=== PATIENT | male | born 1945 | race Caucasian/White ===

== ENCOUNTER 2017-02-15 12:25 | Inpatient (IN) | payer MEDICARE, OTHER ==
[2017-02-15] VITALS (7 sets, daily range): BP systolic 112–157; BP diastolic 48–80; PULSE 61–99; RESP 16–23; O2SAT 95–99
[~2017-02-15] VITALS: Ht 160 cm; Wt 67.7 kg
[2017-02-15 13:28] LABS: BASOPHILS % (AUTO) 0.1 % (0-3); EOSINOPHILS % (AUTO) 0.1 % (0-5); MONOCYTES % (AUTO) 7.1 % (4-12); Mean Corpuscular Hemoglobin 31.8 pg (27.0-35.0); Mean Corpuscular Volume 90.8 fL (81-100); NEUTROPHILS % (AUTO) 90.4 % (40-74); Platelet Count 112 bil/L (150-400)
--- NOTE | 2017-02-15 14:48 | ED.REPORT ---
HPI-URI / Cough / Cold Date of Service Feb 15, 2017 ED Provider: Judi Fu History of Present Illness: coughed up blood this morning. Dx with pneumonia today at the walk in clinic. sick for 3 days with lung thing. some coughing with a great deal of pain. primary care is in [facility] [place] [facility] DR. Wylie. plans to return in 2 weeks leaving on feb 26. wheel chair bound secondary to polio when he was a child Nursing Notes Stated Complaint: PNEUMONIA Chief Complaint: General Complaint Nursing Notes Reviewed: Yes Allergies: Coded Allergies: Sulfa (Sulfonamide Antibiotics) (Verified Allergy, Severe, THROAT SWELLING IN SUN, 02/15/17) hydrocodone (Verified Allergy, Intermediate, Rash, 02/15/17) Scheduled Budesonide/Formoterol 160-4.5 mcg Inh (Symbicort 160-4.5 mcg Inh) 120 Puff Inhaler 1 PUFF INHALATION BID Buspirone (Buspirone) 15 Mg Tablet 15 MG PO TID Carbidopa/Levodopa 25-250 mg (Carbidopa/Levodopa 25-250 mg) 1 Each Tablet 1 TABLET PO QID Ipratropium/Albuterol Sulfate (Iprat-Albut 0.5-3(2.5) mg/3 mL Inhalant Soln) 3 Ml Ampul.neb 3 ML IH Q6 Magnesium Hydroxide (Milk of Magnesia) 400 Mg/5 Ml Oral.susp 400 MG PO HS Meloxicam (Meloxicam) 15 Mg Tablet 15 MG PO DAILYWM Metoprolol Tartrate (Metoprolol Tartrate) 50 Mg Tablet 50 MG PO DAILY Omeprazole (Omeprazole) 20 Mg Capsule.dr 20 MG PO DAILY Solifenacin Succinate (Vesicare) 5 Mg Tablet 10 MG PO DAILY Tamsulosin (Flomax) 0.4 Mg Capsule 0.4 MG PO BID Scheduled PRN Albuterol Sulfate (Ventolin HFA Inhaler) 200 Puff/18 Gm Inhaler 2 PUFF INH Q4 PRN PRN For Wheezing Lorazepam (Lorazepam) 2 Mg Tablet 2 MG PO HS PRN PRN For Insomnia Oxycodone (Roxicodone) 5 Mg Tablet 10 MG PO QID PRN PRN For Pain General Time Seen by MD: 14:46 Chief Complaint Cough, productive... (Bloody) Hx Obtained From: Patient Past Medical History Past Medical History Hx of polio as a child, sciolosis 02/15/2017 Past Surgical History surgery for scoiliosis Smoking History Never Smoker Social History Alcohol Use: Denies alcohol use Drug Use: Denies drug use Other Social History: Occupation lives in [facility], visiting family locally 02/15/2017 Ambulatory Status Wheelchair Review of Systems Basic Review of Systems Cardiovascular: No chest pain, No dyspnea on exertion, No orthopnea, No parox noct dyspnea, No palpitations Hematologic: No bleeding, No bruising Endocrine: No cold intolerance, No heat intolerance, No weight gain, No weight loss Physical Exam Initial Vital Signs Vital Signs (First) Date Time Temp Pulse Resp B/P Pulse Ox O2 Delivery O2 Flow Rate FiO2 02/15/17 12:43 37.3 96 20 126/67 95 Room Air Initial VS: Reviewed, Vital signs normal Head / Eyes: Atraumatic, Normocephalic, PERRL Neck: Supple, Non-tender, Full range of motion Cardiovascular: Regular rate & rhythm, Heart sounds normal, Intact distal pulses Abdomen / GI: Soft, Non-tender, No guarding, No rebound, No distention Back: No CVA tenderness Lymphatic: No lymphadenopathy Extremities: Vascular intact, Neuro intact, No swelling, No tenderness Skin: Warm, Dry, No cyanosis Neurologic: Alert, Oriented, Nonfocal Psychiatric: Mood/affect normal, Behavior normal, Normal thought content General/Constitutional: Awake, Alert, No acute distress, Well appearing, Well developed, Well hydrated ENT: Atraumatic, Airway patent, Mucous membranes moist, Pharynx NL Respiratory / Chest: Atraumatic diminshed breath sounds throughout. Large surgery scar on left back Head / Eyes: Atraumatic, Normocephalic, PERRL Interpretation & Diagnostics Lab Results Interpretation Result Diagram: 02/15/17 1315 02/15/17 1315 Test 02/15/17 13:15 02/15/17 17:58 02/15/17 19:12 White Blood Count 16.6th/mm3 (3.8-10.1) Red Blood Count 5.13mil/mm3 (4.40-5.80) Hemoglobin 16.3g/dL (13.8-17.2) Hematocrit 46.6% (41.0-50.0) Mean Corpuscular Volume 90.8fL (81-100) Mean Corpuscular Hemoglobin 31.8pg (27.0-35.0) Mean Corpuscular Hemoglobin Concent 35.0% (32.0-37.0) Red Cell Distribution Width 13.8% (12.3-15.4) Platelet Count 112bil/L (150-400) Neutrophils (%) (Auto) 90.4% (40-74) Lymphocytes (%) (Auto) 1.9% (14-46) Monocytes (%) (Auto) 7.1% (4-12) Eosinophils (%) (Auto) 0.1% (0-5) Basophils (%) (Auto) 0.1% (0-3) Sodium Level 129mEq/L (134-144) Potassium Level 4.3mEq/L (3.5-5.2) Chloride Level 92mEq/L (97-108) Carbon Dioxide Level 24mmol/L (18-29) Blood Urea Nitrogen 11mg/dL (8-27) Creatinine 0.43mg/dL (0.76-1.27) Estimat Glomerular Filtration Rate 206mL/min (>59) Glucose Level 111mg/dL (60-99) Lactic Acid Level 1.3mmol/L (0.4-2.0) Calcium Level 8.5mg/dL (8.5-10.1) Total Bilirubin 0.9mg/dL (0.0-1.2) Aspartate Amino Transf (AST/SGOT) 15U/L (0-50) Alanine Aminotransferase (ALT/SGPT) 13U/L (0-44) Alkaline Phosphatase 59U/L (25-160) Total Protein 6.2g/dL (6.4-8.4) Albumin 3.7g/dL (3.4-5.0) Urine Color Yellow (YELLOW) Urine Appearance Clear (CLEAR,HAZY) Urine pH 8.5 (5.0-8.0) Urine Specific [place] 1.010 (1.003-1.035) Urine Protein Negativemg/dL (NEG,TRACE) Urine Glucose (UA) Negativemg/dL (NEGATIVE) Urine Ketones Negativemg/dL (NEGATIVE) Urine Occult Blood Negative (NEGATIVE) Urine Nitrite Negative (NEGATIVE) Urine Bilirubin Negative (NEGATIVE) Urine Urobilinogen Normalmg/dL (NORMAL) Urine Leukocyte Esterase Negative (NEGATIVE) Urine RBC 0-2/hpf (0-2) Urine WBC 0-5/hpf (0-5) Urine Epithelial Cells Few/hpf (NONE-MOD) Urine Crystals None seen (NONE SEEN) Urine Bacteria Few/hpf (NONE-FEW) Urine Hyaline Casts None/lpf (NONE) Urine Granular Casts None seen (NONE SEEN) Urine Waxy Casts None seen (NONE SEEN) Urine Red Blood Cell Casts None seen (NONE SEEN) Urine White Blood Cell Casts None seen (NONE SEEN) Urine Mucus None seen (None Seen) Urine Trichomonas None seen (NONE SEEN) Urine Yeast None (NONE SEEN) Urinalysis Comment None Urine Culture Reflexed Not indicated Hold Urine Received (Received) Lab Results Interpretation: urine is negative Re-Eval/Medical Decision Med Decision/Clinical Course Med Decision/Clinical Course: 71 year old male presents to the ER because he had a coughing fit today which resulted in a large amount of blood , about 3/4 a cup per his report of coughing up blood. Patient is wheelchair bound because of polio when he was 6 ro 7. Was seen initially seen at the [facility] in clinic and sent here. Patient and his are intially resistent to being admitted. CT angio is negative. Paitne does agree to admission. Discharge & Departure Impression: Primary Impression: Pneumonia Aspiration pneumonia type: unspecified Laterality: left Lung location: upper lobe of lung Disposition: ADMITTED TO HOSPITAL Referrals: NOPCP (PCP) EDSupervising Provider for APC: Ace David MD copies to: OTHER,PHYSICIAN Judi Fu Feb 15, 2017 14:48
[2017-02-15] MEDS ORDERED: cefTRIAXone Inj 2,000 MG in Dextrose 5% Minibag Plus 50 ML IV ONE (15:15)
--- NOTE | 2017-02-15 17:01 | DRSVH ---
PROCEDURE: CT ANGIO CHEST PULMONARY EMBOLISM ([id number]) INDICATIONS: coughing up blood TECHNIQUE: After the administration of intravenous contrast, 2 mm thick sections acquired from the pulmonary api jayleen to the posterior costophrenic angles. 3-dimensional maximum intensity projection (MIP) coronal a nd sagittal reformats were then acquired through the thorax. For radiation dose reduction, the follo wing was used: automated exposure control, adjustment of mA and/or kV according to patient size. COMPARISON: None. FINDINGS: Image quality: Excellent. Pulmonary arteries: Pulmonary arteries are normal in size, and demonstrate no intraluminal filling d efects to suggest central pulmonary embolism. Bandlike artifact traverses the distal aspect of the l eft main pulmonary artery. Lungs and pleura: Moderate diffuse patchy airspace opacity within the left upper and lower lobes is p resent. No pleural effusions or pneumothorax. Central and peripheral airways are patent. Mediastinum: Heart size is enlarged, without pericardial effusion. There is calcification of the cor onary vasculature. No mediastinal or hilar adenopathy. Thoracic aorta is normal in caliber and enhan cement. Esophagus is normal in caliber. There is a large hiatal hernia. Bones and chest wall: No suspicious bony lesions. Severe rightward curvature of the mid/lower thorac ic spine. Severe leftward curvature of the lumbar spine. Thoracolumbar fixation hardware is present. Ribs and thoracic spine appear intact throughout. Thyroid gland demonstrates a 33 mm diameter exophy tic mass protruding posteriorly from the right lobe. No axillary or supraclavicular adenopathy. Abdomen: Visualized upper abdominal solid organs appear normal in the early arterial phase of enhanc ement. IMPRESSION: 1. No pulmonary malaise. 2. Left upper and lower lobe pneumonia. 3. Right thyroid mass, which could be further assessed with ultrasound, if clinically indicated. 4. Large hiatal hernia. 5. Cardiomegaly and coronary artery disease. 6. Thoracolumbar scoliosis. Dictated by: Cesia Flynn M.D. on 02/15/2017 at 16:56 Approved by: Cesia Flynn M.D. on 02/15/2017 at 16:59
[2017-02-15] MEDS ORDERED: Ondansetron 2 mg/mL 2 mL Inj IVPUSH PRN ×2 (17:55→19:40)
[2017-02-15] MEDS ORDERED: Alum-Mag Hydrox-Simeth 30 mL Suspension PO PRN ×2 (17:55→19:40)
[2017-02-15 18:27] LABS: APPEARANCE,URINE CLEAR (CLEAR,HAZY); COLOR,URINE YELLOW (YELLOW); OCCULT BLOOD,URINE NEGATIVE (NEGATIVE); PH,URINE 8.5 (5.0-8.0); UROBILINOGEN,URINE NORMAL (NORMAL)
[2017-02-15] MEDS ORDERED: OMEP20CA11 PO (18:28)
[2017-02-15] MEDS ORDERED: LORA2TAB PO (18:28)
[2017-02-15] MEDS ORDERED: BUSP15TA3 PO (18:28)
[2017-02-15] MEDS ORDERED: OXYC-474 PO (18:28)
[2017-02-15] MEDS ORDERED: MAGN400O4 PO (18:28)
[2017-02-15] MEDS ORDERED: METO50TA3 PO (18:28)
[2017-02-15] MEDS ORDERED: IPRA3AMP IH (18:28)
[2017-02-15] MEDS ORDERED: SOLI5TAB2 PO (18:28)
[2017-02-15] MEDS ORDERED: SYMINH INHALATION (18:28)
[2017-02-15] MEDS ORDERED: TAMS0.4C98 PO (18:28)
[2017-02-15] MEDS ORDERED: CARB1TAB17 PO (18:28)
[2017-02-15] MEDS ORDERED: ALBU18HF INH (18:28)
[2017-02-15] MEDS ORDERED: MELO-253 PO (18:28)
[2017-02-15] MEDS ORDERED: Azithromycin Inj 500 MG in Dextrose 5% w/Vial Mate 250 ML IV ONE (18:45)
--- NOTE | 2017-02-15 20:59 | PCM.HPMED ---
Subjective Date of Service Feb 15, 2017 Primary Provider: Admitting Physician: Tima Muñoz MD Primary Care Physician: Usha Attending Physician: Tima Muñoz MD Admit Status: From the Emergency Department Chief Complaint: Coughing up blood History of Present Illness: Josiah Power is a 71-year-old male with a past medical history significant for polio, who presents to the ED from urgent care with complaints of feeling sick for 3 days, and one episode of hemoptysis this morning 02/07/2017. He says 3 days ago, he started feeling fatigued with some chills, but no fever. A day after, he developed a cough that became productive, with yellowish sputum. The episode of hemoptysis this morning is what brought him in, as he was trying to wait until he got home to [place] to see his doctor. He reports increased chest wall pain from coughing, but denies being in any healthcare related setting recently, sick contacts, TB history or contacts. Of note, the patient is very unclear of his past medical history as above. He will have his significant other bring in his medical paper in an attempt to clear up why he is on certain medications. Review of Systems: Comprehensive review of systems was conducted with the patient and found to be negative except as noted above in HPI. Allergies Coded Allergies: Sulfa (Sulfonamide Antibiotics) (Verified Allergy, Severe, THROAT SWELLING IN SUN, 02/15/17) hydrocodone (Verified Allergy, Intermediate, Rash, 02/15/17) Home Medications Scheduled Budesonide/Formoterol 160-4.5 mcg Inh (Symbicort 160-4.5 mcg Inh) 120 Puff Inhaler 1 PUFF INHALATION BID Buspirone (Buspirone) 15 Mg Tablet 15 MG PO TID Carbidopa/Levodopa 25-250 mg (Carbidopa/Levodopa 25-250 mg) 1 Each Tablet 1 TABLET PO QID Ipratropium/Albuterol Sulfate (Iprat-Albut 0.5-3(2.5) mg/3 mL Inhalant Soln) 3 Ml Ampul.neb 3 ML IH Q6 Magnesium Hydroxide (Milk of Magnesia) 400 Mg/5 Ml Oral.susp 400 MG PO HS Meloxicam (Meloxicam) 15 Mg Tablet 15 MG PO DAILYWM Metoprolol Tartrate (Metoprolol Tartrate) 50 Mg Tablet 50 MG PO DAILY Omeprazole (Omeprazole) 20 Mg Capsule.dr 20 MG PO DAILY Solifenacin Succinate (Vesicare) 5 Mg Tablet 10 MG PO DAILY Tamsulosin (Flomax) 0.4 Mg Capsule 0.4 MG PO BID Scheduled PRN Albuterol Sulfate (Ventolin HFA Inhaler) 200 Puff/18 Gm Inhaler 2 PUFF INH Q4 PRN PRN For Wheezing Lorazepam (Lorazepam) 2 Mg Tablet 2 MG PO HS PRN PRN For Insomnia Oxycodone (Roxicodone) 5 Mg Tablet 10 MG PO QID PRN PRN For Pain PMH Polio GERD Bladder Incontinence Anxiety Insomnia Other than that, the patient was unsure of his past medical history: He is on carbidopa levodopa but denies Parkinson disease. He is unsure what he takes metoprolol for, but says that it is a "heart condition at night". Surgical History Appendectomy Bilateral carpal tunnel Colonectomy, partial "Multiple Polio surgeries" Family History Sister has heart issues Social History Hx Alcohol Use: No (crit 27 years ago) Hx Substance Use: No Hx Tobacco Use: Yes Smoking Status: Former Smoker (quit 28 years ago) Living Arrangement: with Family (in [place]) Additional Information Wheelchair bound due to polio as a child Exam Vital Signs Vital Sign - Last Date Time Temp Pulse Resp B/P Pulse Ox O2 Delivery O2 Flow Rate FiO2 02/15/17 20:40 36.9 99 18 157/80 95 Room Air Exam General: Elderly gentleman in no acute distress, well-developed, well-nourished , appropriately interactive HEENT: Normocephalic, atraumatic. External ears without defect. Pupils equal, round, and reactive to light and accommodation. Membranes dry on exam. Neck: Supple with full range of motion. No jugular venous distension. No bruits. No lymphadenopathy or thyromegaly. Cardiovascular: Regular rate and rhythm with no murmurs, rubs, or gallops appreciated Pulmonary: Coarse breath sounds throughout. Notably diminished sounds on the left but not crackles/wheezes/rales. Normal respiratory effort with no use of accessory muscles. Abdomen: Bowel tones present. Soft, obese, nontender, nondistended. No hepatosplenomegaly or masses appreciated. Extremities: No clubbing, cyanosis, edema, or lymphadenopathy appreciated. Left leg notably smaller and atrophic than right leg. Skin: Warm, dry. Normal temperature, turgor, and texture; no rash, ulcers, or subcutaneous nodules appreciated. Large surgical scar along spine. Neurological: Cranial nerves grossly intact. He is wheelchair bound at baseline. His LLE is notably atrophic and mostly nonfunctional. Psychiatric: Normal mood and affect. Alert and oriented to person, place, and time. Lab and Diagnostics Result Diagram: 02/15/17 1315 02/15/17 1315 Microbiology Blood cultures, pending Sputum culture, pending Respiratory PCR panel, pending Urine Legionella, pending Urine pneumococcal, pending X-Rays, CTs and MRIs CT angiogram, 02/07/2017 IMPRESSION: 1. No pulmonary malaise. 2. Left upper and lower lobe pneumonia. 3. Right thyroid mass, which could be further assessed with ultrasound, if clinically indicated. 4. Large hiatal hernia. 5. Cardiomegaly and coronary artery disease. 6. Thoracolumbar scoliosis. Dictated by: Cesia Flynn M.D. on 02/15/2017 at 16:56 Approved by: Cesia Flynn M.D. on 02/15/2017 at 16:59 Assessment & Plan Josiah Power is a 71-year-old male with a past medical history significant for polio, who presents to the ED from urgent care with complaints of feeling sick for 3 days, and one episode of hemoptysis this morning 02/07/2017. He denies any sick contacts, recent healthcare settings, or TB contacts. Community acquired pneumonia, present on admission. Acute. Ongoing. - Patient reports URI history, hemoptysis, white blood cell count of 16.6, CT significant for left upper and lower lobe pneumonia - Patient received ceftriaxone and azithromycin in the ED - Continue ceftriaxone 2 g daily, azithromycin 500 mg daily - Respiratory PCR panel ordered - Blood cultures pending - Urine Legionella and pneumococcal ordered - Sputum culture ordered - MRSA swab ordered - Patient is from [place]; if he is not improving on current ABX consider including fungal coverage (coccidioides in particular) Bladder Incontinence, present on admission. Chronic. - likely due to polio - Continue Flomax 0.4 mg twice daily - Continue solifenacin 10mg daily Chronic pain, present on admission. - Likely due to polio, crutch use, polio surgeries - Continue Roxicodone 10mg QID for pain as needed Asthma, present on admission. Chronic. - Continue albuterol and ipratropium as necessary GERD, present on admission. Chronic. - Continue omeprazole 20 mg daily Anxiety, present on admission. Chronic. - Continue Buspirone 15 mg 3 times daily Insomnia, present on admission. Chronic. - Continue lorazepam 2 mg at night PRN Medications - Acetaminophen as needed for mild pain/fever/headache - Bowel regimen as needed - Antiemetic as needed Patient status: Patient is admitted under inpatient status with expected length of stay greater than 2 midnights due to severity of presenting symptoms, risk of adverse event, and complexity of treatment plan. GI Prophylaxis: Proton Pump Inhibitor VTE Prophylaxis: Sub-Q Heparin (Unfractionated) Resuscitation Status: CPR: Attempt Resuscitation Attending Statement The patient was seen and examined together with Dr. Huggins on 02/15 and I agree with the history, exam and plan as outlined in the note above Kiko Huggins DO Feb 15, 2017 20:59 Tima Muñoz MD Feb 15, 2017 23:51
[2017-02-15] MEDS ORDERED: LORazepam 2 mg Tablet PO PRN ×2 (21:10→22:20)
[2017-02-15] MEDS: 0.9% Sodium Chloride 1,000 ML IV SCH (22:10)
[2017-02-15] MEDS: Carbidopa-Levodopa 25-250 mg Tablet PO SCH (22:10)
[2017-02-15] MEDS ORDERED: LORazepam 2 mg Tablet PO ONE (22:23)
[2017-02-15] MEDS: Albuterol 2.5 mg/3 mL Inhalation Solution NEB PRN (23:08)
[2017-02-16] VITALS (13 sets, daily range): BP systolic 120–160; BP diastolic 66–77; PULSE 78–101; RESP 15–20; O2SAT 92–98
[2017-02-16] MEDS: Heparin 5,000 Unit/mL Inj SUBQ SCH ×3 (00:08→15:32)
[2017-02-16] MEDS: Albuterol-Ipratropium 3 mL Inhalation Solution NEB SCH ×4 (01:51→20:30)
[2017-02-16 05:55] LABS: BASOPHILS % (AUTO) 0.3 % (0-3); EOSINOPHILS % (AUTO) 1.2 % (0-5); MONOCYTES % (AUTO) 7.4 % (4-12); Mean Corpuscular Hemoglobin 31.7 pg (27.0-35.0); Mean Corpuscular Volume 91.1 fL (81-100); NEUTROPHILS % (AUTO) 87.1 % (40-74); Platelet Count 101 bil/L (150-400)
--- NOTE | 2017-02-16 06:23 | NUR ---
NOC/Admit/Sore Throat Pt arrived on the floor complains of sore throat and not feeling well. Pt's VSS and has been afebrile. notified of the pus formation around uvula and pharyngeal cavity. Throat swab for culture and was sent to the lab. MRSA swab and Respiratory Viral Panel sent to lab. Pt denies chest pain, sob, n/v or abd discomfort. Pleasant and cooperative with care. Continuing to monitor. Addendum: 02/16/17 at 0629 by ARY SANDERS RN Sputum sample sent to the lab.
[2017-02-16] MEDS: Carbidopa-Levodopa 25-250 mg Tablet PO SCH ×4 (06:34→21:31)
[2017-02-16] MEDS: Pantoprazole 40 mg ER24 Tablet PO SCH (06:34)
[2017-02-16] MEDS: 0.9% Sodium Chloride 1,000 ML IV SCH (09:07)
[2017-02-16] MEDS: Fluticasone-Salmererol 250-50 Inhaler INHALATION SCH ×2 (09:08→20:01)
[2017-02-16] MEDS: BusPIRone 15 mg Dividose Tablet PO SCH ×2 (09:09→15:34)
[2017-02-16] MEDS: Tolterodine ER 2 mg ER24 Capsule PO SCH (09:09)
[2017-02-16] MEDS: Polyethylene Glycol (PEG) 17 Gm Powder PO PRN (09:17)
--- NOTE | 2017-02-16 10:22 | NUR ---
Social Work-initial assessment/multidisciplinary rounds: Data:See initial assessment. Pt is a 71 y/o male who was admitted on 02/15/17 for left upper and lower pneumonia per H&P. pt's insurance is [facility] and [facility] and PCP is Dr. Crowe in [place].EMR Reviewed. SW met with pt at bedside, SW role explained. Pt is alert and oriented x3. Pt resides at home with his SO in [place], they are currently up here visiting family. Pt uses a w/c at baseline and is able to self transfer. Pt drives, has no HH or SNF history. Pt has no longterm care insurance or VA benefits. SW discussed DPOA/ advanced directive, pt confirms this has been completed, SW encouraged a copy to be brought in. Pt discussed in morning rounds, no concerned noted for pt's capacity for self care from RN or MD. pt confirms his SO Larisa Ness will provide transport home. SW provided pt with discharge planning checklist and encouraged him to call with any questions,phone number provided on white board in room. No MD orders have been received for SW. No anticipated discharge needs. SW will continue to follow if needs arise. Assessment:pt who is w/c bound at baseline. Plan:Pt to discharge home when medically stable via POV. No anticipated discharge needs. SW will continue to follow if needs arise. ISHAAN Gilman Addendum: 02/16/17 at 1028 by FERNANDA MARISCAL SS Amended: Links added.
--- NOTE | 2017-02-16 10:46 | PCM.PNMED ---
Subjective Date of Service Feb 16, 2017 Subjective Reports continued generalized malaise and occasional coughing up blood (last episode earlier this morning). No n/v/diarrhea Exam Vital Signs Vital Sign - Last Date Time Temp Pulse Resp B/P Pulse Ox O2 Delivery O2 Flow Rate FiO2 02/16/17 08:55 36.0 78 20 135/74 95 Room Air Intake and Output 02/15/17 02/15/17 02/16/17 Cumulative From/Thru 15:00 23:00 07:00 02/15/17 12:43 - 02/16/17 06:35 Intake Total 779 ml 779 ml Balance 779 ml 779 ml Intake IV Total 779 ml 779 ml # Voids 2 2 General: Alert, Cooperative, No Acute Distress Head: Normal Eyes: Scleral Anicteric Nose: Mucous Membr Moist/Aneth Mouth: Mucous Membr Moist/Aneth Neck: Supple Chest & Lungs: Chest Wall Normal, Clear to auscultation & percussion Cardiovascular: Regular Rate/Rhythm Abdomen: Non-tender, Non-distended, Normoactive bowel tones, Soft Extremities: No cyanosis/clubbing/edma bilat Neurological: Grossly Neurologically Intact, Normal Speech IVs and Medications Medications Reviewed: Medications were reviewed in detail Lab and Diagnostics Result Diagram: 02/16/1752902/16/1730 Microbiology Blood cultures, pending Sputum culture, pending Respiratory PCR panel, pending Urine Legionella, pending Urine pneumococcal, pending X-Rays, CTs and MRIs CT angiogram, 02/07/2017 IMPRESSION: 1. No pulmonary malaise. 2. Left upper and lower lobe pneumonia. 3. Right thyroid mass, which could be further assessed with ultrasound, if clinically indicated. 4. Large hiatal hernia. 5. Cardiomegaly and coronary artery disease. 6. Thoracolumbar scoliosis. Dictated by: Cesia Flynn M.D. on 02/15/2017 at 16:56 Approved by: Cesia Flynn M.D. on 02/15/2017 at 16:59 Assessment & Plan 71-year-old male with a past medical history significant for polio at age 6, originally from [place] who presents to the ED from urgent care with complaints of feeling sick for 3 days, and hemoptysis # Acute community acquired pneumonia, present on admission. Ongoing. - CTA chest on admission suggestive of left upper and lower lobe pneumonia - Continue ceftriaxone 2 g daily, azithromycin 500 mg daily started in ED - Respiratory PCR panel pending - Blood cultures pending - Urine Legionella and pneumococcal pending - MRSA swab pending - Patient is from [place]; if he is not improving on current ABX consider additional serologies (coccidioides in particular) # Acute hyponatremia. Present on admission. - Improving with IVF - Continue IVF and followup # Bladder Incontinence, present on admission. Chronic. - Likely due to polio - Continue Flomax 0.4 mg twice daily - Continue solifenacin 10mg daily # Chronic pain, present on admission. - Likely due to polio, crutch use, polio surgeries - Continue Roxicodone 10mg QID for pain as needed # Chronic Asthma, present on admission. Stable. - Continue albuterol and ipratropium as necessary # GERD, present on admission. Chronic. - Continue omeprazole 20 mg daily # Anxiety, present on admission. Chronic. - Continue Buspirone 15 mg 3 times daily # Insomnia, present on admission. Chronic. - Continue lorazepam 2 mg at night Dispo: 1-2 days GI Prophylaxis: Proton Pump Inhibitor VTE Prophylaxis: Sub-Q Heparin (Unfractionated) Resuscitation Status: CPR: Attempt Resuscitation Flakito Juarez Feb 16, 2017 10:46
[2017-02-16] MEDS ORDERED: 0.9% Sodium Chloride 1,000 ML IV ONE (10:50)
--- NOTE | 2017-02-16 10:50 | NUR ---
Case Management: [facility] delivered and charted. Signed original placed in chart. Copy left at bedside. Shannon Ann RN
[2017-02-16] MEDS ORDERED: LORA10CA PO (11:26)
[2017-02-16] MEDS: Azithromycin Inj 500 MG in Dextrose 5% w/Vial Mate 250 ML IV SCH (17:00)
[2017-02-16] MEDS: cefTRIAXone Inj 2,000 MG in Dextrose 5% Minibag Plus 50 ML IV SCH (17:00)
--- NOTE | 2017-02-16 19:25 | NUR ---
Mentation Increasing confusion this shift, alert to self only. Provider notified and assessed. Shortly after reassessment and at the start of shift change pt started exhibiting extra pyramidal like movements with body swaying and head rolling. Charge and on coming RN assessed and night Hospitalist notified.
[2017-02-16] MEDS: Magnesium Hydroxide 10 mL Oral Concentration PO SCH (21:08)
--- NOTE | 2017-02-16 21:45 | NUR ---
MENTATION/ACTIVITY At start of shift, previous shift staff concerned regarding change in pts mentation. Per previous RN, pt has been increasingly more confused since 1099 and started to display EPS-like movements (swaying in wheelchair, eyes opened wide) since 1829. VS obtained. Pt able to answer some questions appropriately, slow to answer. Pt able to follow instructions, no deficits in strength or symmetry. Pt very restless, pulling at telemetry, trying to eat soup with his fork. Pt needing guidance and assistance w/ using his personal electric wheelchair to getting to BR and on/off toilet. PRN tylenol administered for increased temp. Noc hospitalist paged, informed on pts status, most likely delirium per hospitalist. Hospitalist discontinued some medications and asked RN to page again for any changes or concerns. At time of note, pt appears to be slightly more coherent. Pt more agitated/concerned about his medications and lack of independence getting on/off bed to wheelchair. Uses call light appropriately. Continue to monitor.
[2017-02-17] VITALS (11 sets, daily range): BP systolic 124–151; BP diastolic 64–77; PULSE 81–108; RESP 16–20; O2SAT 93–98
[2017-02-17] MEDS: Heparin 5,000 Unit/mL Inj SUBQ SCH ×4 (00:01→15:59)
[2017-02-17] MEDS: Albuterol-Ipratropium 3 mL Inhalation Solution NEB SCH ×4 (02:38→21:36)
[2017-02-17 05:39] LABS: BASOPHILS % (AUTO) 0.3 % (0-3); EOSINOPHILS % (AUTO) 2.2 % (0-5); MONOCYTES % (AUTO) 7.2 % (4-12); Mean Corpuscular Hemoglobin 31.4 pg (27.0-35.0); Mean Corpuscular Volume 90.4 fL (81-100); NEUTROPHILS % (AUTO) 87.6 % (40-74); Platelet Count 93 bil/L (150-400)
[2017-02-17 05:54] LABS: INR 1.1 ratio
[2017-02-17 06:15] LABS: Magnesium 1.8 mg/dL (1.6-2.6)
[2017-02-17] MEDS: Pantoprazole 40 mg ER24 Tablet PO SCH (06:17)
[2017-02-17] MEDS: Carbidopa-Levodopa 25-250 mg Tablet PO SCH ×4 (06:18→20:58)
[2017-02-17] MEDS: Fluticasone-Salmererol 250-50 Inhaler INHALATION SCH ×2 (09:05→20:55)
[2017-02-17] MEDS: Tolterodine ER 2 mg ER24 Capsule PO SCH (09:09)
[2017-02-17] MEDS: Polyethylene Glycol (PEG) 17 Gm Powder PO PRN (09:09)
[2017-02-17] MEDS ORDERED: Polyethylene Glycol (PEG) 17 Gm Powder PO ONE (11:05)
[2017-02-17] MEDS ORDERED: Senna-Docusate 8.6-50 mg Tablet PO ONE (11:05)
--- NOTE | 2017-02-17 11:11 | PCM.PNMED ---
Subjective Date of Service Feb 17, 2017 Subjective Throat is very sore, this is main complaint. Breathing however is improved. he denies fever/chills overnight. Appetite is 'ok' but pain with swallowing is noted. OIther concern is constipation, now no BM in >4 days, usually he stools every days, aided by MOM, which was not effective since does taken last night. No other acute complaints at this time. Exam Vital Signs Vital Sign - Last Date Time Temp Pulse Resp B/P Pulse Ox O2 Delivery O2 Flow Rate FiO2 02/17/17 10:29 104 02/17/17 09:54 36.7 18 140/74 96 Room Air Intake and Output 02/16/17 02/16/17 02/17/17 Cumulative From/Thru 15:00 23:00 07:00 02/15/17 12:43 - 02/17/17 04:41 Intake Total 1708 ml 1373 ml 3860 ml Output Total 1025 ml 1525 ml 2550 ml Balance 683 ml -152 ml 1310 ml Intake Oral 908 ml 850 ml 1758 ml IV Total 800 ml 523 ml 2102 ml Output Urine Total 1025 ml 1525 ml 2550 ml # Voids 4 3 9 # Bowel Movements 0 0 General: Alert, Oriented X3, Cooperative, Moderate Distress Mouth: Oropharynx (erythematous, with steaking exudates presence on posterior pharynx. (+)LAD B/L. ) Chest & Lungs: Coarse breath sounds, Other (signifcant crackles/rhonci noted on left side, lower and upper lobes. ) Abdomen: Non-tender Neurological: Grossly Neurologically Intact, Cranial Nerves 2-12 Intact IVs and Medications Medications Reviewed: Medications were reviewed in detail Lab and Diagnostics Result Diagram: 02/17/1752402/17/17524 Microbiology Blood cultures, pending Sputum culture, pending Respiratory PCR panel, pending Urine Legionella, pending Urine pneumococcal, pending X-Rays, CTs and MRIs CT angiogram, 02/07/2017 IMPRESSION: 1. No pulmonary malaise. 2. Left upper and lower lobe pneumonia. 3. Right thyroid mass, which could be further assessed with ultrasound, if clinically indicated. 4. Large hiatal hernia. 5. Cardiomegaly and coronary artery disease. 6. Thoracolumbar scoliosis. Dictated by: Cesia Flynn M.D. on 02/15/2017 at 16:56 Approved by: Cesia Flynn M.D. on 02/15/2017 at 16:59 Assessment & Plan 71-year-old male with a past medical history significant for polio at age 6, originally from [place] who presents to the ED from urgent care with complaints of feeling sick for 3 days, and hemoptysis # Acute community acquired pneumonia, present on admission. Ongoing. - CTA chest on admission suggestive of left upper and lower lobe pneumonia - Continue ceftriaxone 2 g daily, azithromycin 500 mg daily started in ED - Respiratory PCR panel negative for viral pathology - Blood cultures pending, remain negative at this time. - Urine Legionella and pneumococcal pending - MRSA swab negative - Patient is from [place]; if he is not improving on current ABX consider additional serologies (coccidioides in particular) #Sore throat/Pharnyngitis: - erythema evident - Strep culture negative to date - Viscous lidocaine RX'd for symptom relief. # Acute hyponatremia. Present on admission. - Improving with IVF - Continue IVF and followup # Bladder Incontinence, present on admission. Chronic. - Likely due to polio - Continue Flomax 0.4 mg twice daily - Continue solifenacin 10mg daily # Chronic pain, present on admission. - Likely due to polio, crutch use, polio surgeries - Continue Roxicodone 10mg QID for pain as needed # Chronic Asthma, present on admission. Stable. - Continue albuterol and ipratropium as necessary # GERD, present on admission. Chronic. - Continue omeprazole 20 mg daily # Anxiety, present on admission. Chronic. - Continue Buspirone 15 mg 3 times daily # Insomnia, present on admission. Chronic. - Continue lorazepam 2 mg at night Pain Evaluation: Adequate Pain Control GI Prophylaxis: Proton Pump Inhibitor VTE Prophylaxis: Sub-Q Heparin (Unfractionated) Resuscitation Status: CPR: Attempt Resuscitation Time spent 30 minutes Tye Brenner DO Feb 17, 2017 11:11
--- NOTE | 2017-02-17 13:48 | NUR ---
Constipation: Patient complained of not having BM in 4-5days. States he usually takes MOM and stool softener every night and questioning why he is not getting those medication while admitted. Reviewed eMAR, informed patient that he has scheduled MOM @ 2100 and it was administered last night. Administered prune juice, Senna and Miralax with am scheduled medications. Received MD order for DOS and Miralax. Per conversation with MD, administered after lunch to evaluate effectiveness from am bowel meds. No BM as yet. Positive bowel tones, passing flatus, encouraging fluids. Will continue to follow.
[2017-02-17] MEDS: cefTRIAXone Inj 2,000 MG in Dextrose 5% Minibag Plus 50 ML IV SCH (16:02)
[2017-02-17] MEDS: Azithromycin Inj 500 MG in Dextrose 5% w/Vial Mate 250 ML IV SCH (17:20)
[2017-02-17] MEDS: Magnesium Hydroxide 10 mL Oral Concentration PO SCH (20:57)
[2017-02-17] MEDS ORDERED: LORazepam 2 mg Tablet PO PRN (21:05)
[2017-02-18] MEDS: Heparin 5,000 Unit/mL Inj SUBQ SCH ×2 (00:01→08:30)
[2017-02-18] MEDS: Albuterol-Ipratropium 3 mL Inhalation Solution NEB SCH ×2 (02:30→08:17)
[2017-02-18 04:39] VITALS: BP 133/75; PULSE 88; RESP 20; O2SAT 95
[2017-02-18 04:57] VITALS: PULSE 96
--- NOTE | 2017-02-18 05:05 | NUR ---
PT ACTIVITY/BOWELS Pt has been in and out of bed to wheelchair, and to BR. Pt able to transfer self independently, very minimal assist if any. Pt had small, formed stool at start of shift. Later in shift, pt had large, very soft BM. Pt states feeling relief. Continue to monitor. Call light in reach. Bed alarm on. Intentional rounding. Addendum: 02/18/17 at 0523 by MERVAT SHAW RN Pt had another large soft BM towards end of shift.
[2017-02-18] MEDS: Carbidopa-Levodopa 25-250 mg Tablet PO SCH ×2 (05:26→11:21)
[2017-02-18] MEDS: Pantoprazole 40 mg ER24 Tablet PO SCH (05:26)
[2017-02-18 05:33] VITALS: PULSE 97; RESP 18; O2SAT 99
[2017-02-18] MEDS: Albuterol 2.5 mg/3 mL Inhalation Solution NEB PRN (05:33)
[2017-02-18 06:09] LABS: BASOPHILS % (AUTO) 0.5 % (0-3); EOSINOPHILS % (AUTO) 5.2 % (0-5); MONOCYTES % (AUTO) 10.7 % (4-12); Mean Corpuscular Hemoglobin 31.5 pg (27.0-35.0); Mean Corpuscular Volume 89.5 fL (81-100); NEUTROPHILS % (AUTO) 75.9 % (40-74); Platelet Count 111 bil/L (150-400)
[2017-02-18 08:00] VITALS: PULSE 92
[2017-02-18 08:17] VITALS: PULSE 95; RESP 16; O2SAT 94
[2017-02-18 09:05] VITALS: BP 163/73; PULSE 107; RESP 18; O2SAT 95
[2017-02-18] MEDS: Fluticasone-Salmererol 250-50 Inhaler INHALATION SCH (09:20)
[2017-02-18] MEDS: Tolterodine ER 2 mg ER24 Capsule PO SCH (09:21)
--- NOTE | 2017-02-18 11:03 | PCM.DC.MED ---
Discharge Summary Date of Service Feb 18, 2017 Dates of Hospitalization Date of Hospital Admission Feb 15, 2017 at 19:27 Date of Discharge: Feb 18, 2017 Providers: Admitting Physician: Tima Muñoz MD Primary Care Physician: Usha Attending Physician: Tye Brenner DO Diagnosis at Time of Discharge Diagnosis at Time of Discharge # Acute community acquired pneumonia, present on admission. Ongoing. #Sore throat/Pharnyngitis: # Acute hyponatremia. Present on admission. # Bladder Incontinence, present on admission. Chronic. # Chronic pain, present on admission. # Chronic Asthma, present on admission. Stable. # GERD, present on admission. Chronic. # Anxiety, present on admission. Chronic. # Insomnia, present on admission. Chronic. Procedures XRay, CTs & MRIs CT angiogram, 02/07/2017 IMPRESSION: 1. No pulmonary malaise. 2. Left upper and lower lobe pneumonia. 3. Right thyroid mass, which could be further assessed with ultrasound, if clinically indicated. 4. Large hiatal hernia. 5. Cardiomegaly and coronary artery disease. 6. Thoracolumbar scoliosis. Dictated by: Cesia Flynn M.D. on 02/15/2017 at 16:56 Approved by: Cesia Flynn M.D. on 02/15/2017 at 16:59 Brief History As per admission HPI by Dr Muñoz, "Josiah Power is a 71-year-old male with a past medical history significant for polio, who presents to the ED from urgent care with complaints of feeling sick for 3 days, and one episode of hemoptysis this morning 02/07/2017. He says 3 days ago, he started feeling fatigued with some chills, but no fever. A day after, he developed a cough that became productive, with yellowish sputum. The episode of hemoptysis this morning is what brought him in, as he was trying to wait until he got home to [place] to see his doctor. He reports increased chest wall pain from coughing, but denies being in any healthcare related setting recently, sick contacts, TB history or contacts. Of note, the patient is very unclear of his past medical history as above. He will have his significant other bring in his medical paper in an attempt to clear up why he is on certain medications." Hospital Course # Acute community acquired pneumonia, present on admission. Ongoing. - CTA chest on admission suggestive of left upper and lower lobe pneumonia - Continue ceftriaxone 2 g daily, azithromycin 500 mg daily started in ED - Respiratory PCR panel negative for viral pathology - Blood cultures remained negative at discharge >48 hrs - Urine Legionella and pneumococcal negative - MRSA swab negative - Patient is from [place]; degree of concern for coccidioides in particular, however with rapid recovery in response to treatment for CAP this was not worked up further - Plan for DC on 7 additional days of Cefdinir to complete 10 day antibiotic course. #Sore throat/Pharnyngitis: - erythema evident - Strep culture negative to date - Viscous lidocaine RX'd for symptom relief, while in house, rx provided on DC as well. # Acute hyponatremia. Present on admission. - Improved with IVF - Na+ remained low on discharge, recommended FU within 1 week of discharge for repeat sodium level. # Bladder Incontinence, present on admission. Chronic. - Likely due to polio - Continue Flomax 0.4 mg twice daily - Continue solifenacin 10mg daily # Chronic pain, present on admission. - Likely due to polio, crutch use, polio surgeries - Continue Roxicodone 10mg QID for pain as needed # Chronic Asthma, present on admission. Stable. - Continue albuterol and ipratropium as necessary # GERD, present on admission. Chronic. - Continue omeprazole 20 mg daily # Anxiety, present on admission. Chronic. - Continue Buspirone 15 mg 3 times daily # Insomnia, present on admission. Chronic. - Continue lorazepam 2 mg at night Exam Vital Signs (Last) Date Time Temp Pulse Resp B/P Pulse Ox O2 Delivery O2 Flow Rate FiO2 02/18/17 09:05 37.1 107 18 163/73 95 Room Air Exam General: Alert, Oriented X3, Cooperative, Moderate Distress Mouth: Oropharynx (erythematous, with steaking exudates presence on posterior pharynx. (+)LAD B/L. ) Chest & Lungs: Coarse breath sounds, Other (signifcant crackles/rhonci noted on left side, lower and upper lobes. ) Abdomen: Non-tender Neurological: Grossly Neurologically Intact, Cranial Nerves 2-12 Intact Test 02/15/17 13:15 02/15/17 17:58 02/15/17 19:07 02/15/17 23:29 Lactic Acid Level 1.3mmol/L (0.4-2.0) Urine Color Yellow (YELLOW) Urine Appearance Clear (CLEAR,HAZY) Urine pH 8.5 (5.0-8.0) Urine Specific [place] 1.010 (1.003-1.035) Urine Protein Negativemg/dL (NEG,TRACE) Urine Glucose (UA) Negativemg/dL (NEGATIVE) Urine Ketones Negativemg/dL (NEGATIVE) Urine Occult Blood Negative (NEGATIVE) Urine Nitrite Negative (NEGATIVE) Urine Bilirubin Negative (NEGATIVE) Urine Urobilinogen Normalmg/dL (NORMAL) Urine Leukocyte Esterase Negative (NEGATIVE) Urine RBC 0-2/hpf (0-2) Urine WBC 0-5/hpf (0-5) Urine Epithelial Cells Few/hpf (NONE-MOD) Urine Crystals None seen (NONE SEEN) Urine Bacteria Few/hpf (NONE-FEW) Urine Hyaline Casts None/lpf (NONE) Urine Granular Casts None seen (NONE SEEN) Urine Waxy Casts None seen (NONE SEEN) Urine Red Blood Cell Casts None seen (NONE SEEN) Urine White Blood Cell Casts None seen (NONE SEEN) Urine Mucus None seen (None Seen) Urine Trichomonas None seen (NONE SEEN) Urine Yeast None (NONE SEEN) Urinalysis Comment None Urine Culture Reflexed Not indicated Urine Legionella pneumophilia Ag Negative (Negative) Hold Urine Received (Received) Test 02/16/17 05:30 02/17/17 05:25 02/18/17 05:36 Total Bilirubin 0.7mg/dL (0.0-1.2) Aspartate Amino Transf (AST/SGOT) 13U/L (0-50) Alanine Aminotransferase (ALT/SGPT) 5U/L (0-44) Alkaline Phosphatase 56U/L (25-160) Total Protein 5.3g/dL (6.4-8.4) Albumin 3.3g/dL (3.4-5.0) Prothrombin Time 11.8sec (8.1-12.5) Prothromb Time International Ratio 1.10ratio Activated Partial Thromboplast Time 40.9sec (22.8-33.0) Magnesium Level 1.8mg/dL (1.6-2.6) Procalcitonin 1.28ng/mL (0.00-0.08) White Blood Count 8.3th/mm3 (3.8-10.1) Red Blood Count 4.76mil/mm3 (4.40-5.80) Hemoglobin 15.0g/dL (13.8-17.2) Hematocrit 42.6% (41.0-50.0) Mean Corpuscular Volume 89.5fL (81-100) Mean Corpuscular Hemoglobin 31.5pg (27.0-35.0) Mean Corpuscular Hemoglobin Concent 35.2% (32.0-37.0) Red Cell Distribution Width 13.5% (12.3-15.4) Platelet Count 111bil/L (150-400) Neutrophils (%) (Auto) 75.9% (40-74) Lymphocytes (%) (Auto) 7.6% (14-46) Monocytes (%) (Auto) 10.7% (4-12) Eosinophils (%) (Auto) 5.2% (0-5) Basophils (%) (Auto) 0.5% (0-3) Sodium Level 130mEq/L (134-144) Potassium Level 4.2mEq/L (3.5-5.2) Chloride Level 94mEq/L (97-108) Carbon Dioxide Level 21mmol/L (18-29) Blood Urea Nitrogen 9mg/dL (8-27) Creatinine 0.33mg/dL (0.76-1.27) Estimat Glomerular Filtration Rate 280mL/min (>59) Glucose Level 88mg/dL (60-99) Calcium Level 8.9mg/dL (8.5-10.1) Microbiology Results Blood cultures, pending Sputum culture, pending Respiratory PCR panel, pending Urine Legionella, pending Urine pneumococcal, pending Discharge Medications Discharge Medications Budesonide/Formoterol 160-4.5 mcg Inh (Symbicort 160-4.5 mcg Inh) 120 Puff Inhaler 1 PUFF INHALATION BID (Reported) Buspirone (Buspirone) 15 Mg Tablet 15 MG PO TID (Reported) Carbidopa/Levodopa 25-250 mg (Carbidopa/Levodopa 25-250 mg) 1 Each Tablet 1 TABLET PO QID (Reported) Ipratropium/Albuterol Sulfate (Iprat-Albut 0.5-3(2.5) mg/3 mL Inhalant Soln) 3 Ml Ampul.neb 3 ML IH Q6 (Reported) Loratadine (Claritin) 10 Mg Capsule 10 MG PO DAILY (Reported) Magnesium Hydroxide (Milk of Magnesia) 400 Mg/5 Ml Oral.susp 400 MG PO HS ( Reported) Meloxicam (Meloxicam) 15 Mg Tablet 15 MG PO DAILYWM (Reported) Metoprolol Tartrate (Metoprolol Tartrate) 50 Mg Tablet 50 MG PO DAILY (Reported ) Omeprazole (Omeprazole) 20 Mg Capsule.dr 20 MG PO DAILY (Reported) Solifenacin Succinate (Vesicare) 5 Mg Tablet 10 MG PO DAILY (Reported) Tamsulosin (Flomax) 0.4 Mg Capsule 0.4 MG PO HS (Reported) As needed Albuterol Sulfate (Ventolin HFA Inhaler) 200 Puff/18 Gm Inhaler 2 PUFF INH Q4 PRN PRN For Wheezing (Reported) Lorazepam (Lorazepam) 2 Mg Tablet 2 MG PO HS PRN PRN For Insomnia (Reported) Oxycodone (Roxicodone) 5 Mg Tablet 10 MG PO QID PRN PRN For Pain (Reported) Followup Plan Disposition: Home with family Follow-up plan Complete all antibiotic as prescribed. You should follow up with physician within 1 week of discharge for further evaluation of lung condition for complete resolution, and in addition to re- evaluate your sodium levels which remained low through hospital stay (Sodium = 130 on day of discharge) Discharge Diet: No restrictions Discharge Activity: No restrictions Follow-up with PCP in: 1 week Time spent 40 minutes Tye Brenner DO Feb 18, 2017 11:03
[2017-02-18] MEDS ORDERED: CEFD300C3 PO (11:07)
--- NOTE | 2017-02-18 11:08 | PCM.DIMED ---
Discharge Instructions Date of Service Feb 18, 2017 Dates of Hospitalization Feb 15, 2017 at 19:27 Discharge Diagnosis Discharge Diagnosis # Acute community acquired pneumonia, present on admission. Ongoing. #Sore throat/Pharnyngitis: # Acute hyponatremia. Present on admission. # Bladder Incontinence, present on admission. Chronic. # Chronic pain, present on admission. # Chronic Asthma, present on admission. Stable. # GERD, present on admission. Chronic. # Anxiety, present on admission. Chronic. # Insomnia, present on admission. Chronic. Diet Discharge Diet: No restrictions Activity Discharge Activity: No restrictions Patient Instructions Follow-up plan Complete all antibiotic as prescribed. You should follow up with physician within 1 week of discharge for further evaluation of lung condition for complete resolution, and in addition to re- evaluate your sodium levels which remained low through hospital stay (Sodium = 130 on day of discharge) Follow-up with PCP in: 1 week Tye Brenner DO Feb 18, 2017 11:08
--- NOTE | 2017-02-18 11:46 | NUR ---
Social Work-discharge: Data:EMR Reviewed. Pt is on day 3 of hospitalization for left upper and lower lobe pneumonia per H&P. Pt is medically stable for discharge. Pt is w/c bound at baseline and has been able to self transfer. Pt updated and agreeable to plan. Pt's SO to provide transport home. No other SW needs identified. All updated and agreeable to plan. Assessment:Pt who is w/c bound at baseline. Plan:pt to discharge home today via POv. No discharge needs identified. All updated and agreeable to plan. ISHAAN Gilman
--- NOTE | 2017-02-18 14:48 | NUR ---
Discharge D/C to home with . Discharge packed provided with instructions, f/u info and RX. Provider discussed need for f/u labwork at recheck. No further questions and pt left with with all belongings in no sign of distress in personal electric w/c.
== END 2017-02-18 14:26 | disposition home or self-care (01) | DRG 194 ==
LOC: SED 12:25 → MPC 19:27 → OBSVTOIN 19:27
PROVIDERS: ADMIT Hospitalist; ATTEND Family Medicine
DX: J18.9 Pneumonia, unspecified organism (principal); E87.1 Hypo-osmolality and hyponatremia; A80.9 Acute poliomyelitis, unspecified; K21.9 Gastro-esophageal reflux disease without esophagitis; R32 Unspecified urinary incontinence; J45.909 Unspecified asthma, uncomplicated; G89.29 Other chronic pain; G47.00 Insomnia, unspecified; J02.9 Acute pharyngitis, unspecified; Z99.3 Dependence on wheelchair